=== PATIENT | male | born 1945 | race Caucasian/White ===

== ENCOUNTER 2022-07-27 13:34 | Outpatient (CLI) | payer MEDICARE, OTHER, SELFPAY ==
--- NOTE | 2022-07-27 15:00 | W.PM.STED ---
Stress Test Note Date Date Seen: 07/27/22 Date of test: 07/27/22 Providers Primary care provider: Manjeet Dunbar Stress test physician: [place] Stress Test Note Stress test ordered: Stress Echo Indication for test: Chest pain with left arm pain Results discussion: Patient is a very nice 77-year-old gentleman who presents here for the above test after review of the cardiac stress test medical history form, he would like to proceed risks benefits and adverse consequences are discussed with him. He accepts these and would like to proceed. Pretest EKG shows normal sinus rhythm with a heart rate of 87 blood pressure 120 on 75. Patient showed excellent exercise tolerance is able to follow the [place] protocol for 9 minutes 18 seconds and she had a metabolic equivalent of 10.7 Mets, maximum heart rate was 152, which is 123% of the target. He did not have any chest pain shortness of breath test is terminated because of fulfillment of protocol during this test there is no appreciable ST wave changes suggestive of ischemia, there was no dysrhythmias, any recovered normally in the recovery. Impression: Negative electrographic portion of stress echo Follow up suggested: Follow-up with primary care suggested, conditioning was felt to be excellent, Cardiology will read the echo portion and clinical correlation with this will be needed. Patient left this testing facility in excellent condition.
[2022-07-27 16:26] VITALS: BP 149/74; PULSE 85
== END 2022-07-27 13:35 | disposition home or self-care (01) ==
LOC: STRESS 13:35
PROVIDERS: PCP Family Medicine; Visit Provider Family Medicine
DX: R07.89 Other chest pain (principal); M79.602 Pain in left arm; I20.8 Other forms of angina pectoris
CPT/HCPCS: 93016; 93325; 93351

== ENCOUNTER 2023-07-19 10:20 | Outpatient (CLI) | payer MEDICARE, OTHER, SELFPAY | END 2023-07-19 10:21 | disposition home or self-care (01) | PROVIDERS: PCP Family Medicine; Visit Provider Family Medicine | DX: E03.9 Hypothyroidism, unspecified (principal); E78.5 Hyperlipidemia, unspecified; E13.9 Other specified diabetes mellitus without complications; Z79.84 Long term (current) use of oral hypoglycemic drugs | CPT/HCPCS: 80048; 80061; 80076; 84443 ==

== ENCOUNTER 2024-08-01 10:00 | Outpatient (CLI) | payer MEDICARE, SELFPAY | END 2024-08-01 10:01 | disposition home or self-care (01) | PROVIDERS: PCP Family Medicine; Visit Provider Family Medicine | DX: E11.9 Type 2 diabetes mellitus without complications (principal); E78.5 Hyperlipidemia, unspecified; E03.9 Hypothyroidism, unspecified; R53.83 Other fatigue; Z13.0 Encounter for screening for diseases of the blood and blood-forming organs and certain disorders involving the immune mechanism | CPT/HCPCS: 80048; 80061; 84443 ==

== ENCOUNTER 2024-09-14 10:10 | Emergency (ER) | payer MEDICARE, SELFPAY ==
[2024-09-14] VITALS (36 sets, daily range): BP systolic 108–146; BP diastolic 66–93; PULSE 75–89; RESP 16–20; TEMP 36.6; O2SAT 93–98; BMI 24.7
--- NOTE | 2024-09-14 10:51 | ED.GENADULT ---
HPI - General Adult General Chief complaint: Shortness of Breath/Dyspnea Stated complaint: Fluid in lungs Time Seen by Provider: 09/14/24 10:48 History of Present Illness HPI narrative: Pt sent by Dr. Dunbar, has been having symptoms of SOB for about 5 days. [place] like chest cold and cough. Also has some mild back pain which is unusual. 79-year-old man presenting to the emergency department after being seen in clinic with concern of pleural effusion and needing further characterization and possible intervention. History of diabetes type 2 using insulin. Also hypothyroid. Normal TSH in mid July. Has been short of breath increasingly so with exertion over the last few to 5 days. Is not having trouble sleeping, lying back. No cough or cold symptoms maybe trace cough today. No fever. Related Data Home Medications ?Medication ?Instructions ?Recorded ?Confirmed aspirin 81 mg tablet,delayed 81 mg PO QDAY 07/19/23 09/14/24 release nystatin 100,000 unit/gram topical 1 applic topical TID PRN 08/01/24 09/14/24 cream valacyclovir 1 gram tablet 1,000 mg PO BID PRN 08/01/24 09/14/24 insulin glargine 100 unit/mL (3 12 unit subcut QHS 09/14/24 mL) subcutaneous pen (Lantus Solostar U-100 Insulin) Previous Rx's ?Medication ?Instructions ?Recorded pen needle, diabetic 32 gauge x #100 ea 05/19/2302/17 (BD Ultra-Fine Micro Pen Needle) atorvastatin 10 mg tablet 10 mg PO QDAY #90 tabs 07/19/23 metformin 1,000 mg tablet 1,000 mg PO BID #180 tabs 07/19/23 semaglutide 0.25 mg or 0.5 mg (2 0.5 mg (0.736 mL) subcut QWEEK #3 06/05/24 mg/3 mL) subcutaneous pen injector mL (Ozempic) hydroxychloroquine 200 mg tablet 200 mg PO QDAY #90 tabs 07/10/24 blood-glucose,neurodiagnostic tech,cont #1 ea 07/30/24 (FreeStyle Nahomi 3 Hickman) blood-glucose sensor (FreeStyle #2 ea 08/07/24 Nahomi 3 Plus Sensor device) insulin aspart U-100 100 unit/mL 18 unit (0.18 mL) subcut TID #30 mL 08/07/24 (3 mL) subcutaneous pen (Novolog FlexPen U-100 Insulin aspart) hydrocodone 5 mg-acetaminophen 325 1 tab PO Q8H PRN pain #24 tabs 08/30/24 mg tablet levothyroxine 50 mcg tablet 50 mcg PO QDAY #90 tabs 08/30/24 tadalafil 20 mg tablet 20 mg PO QDAY PRN sexual activity 08/30/24 #32 tabs zolpidem 5 mg tablet 5 mg PO QHS PRN insomnia #20 tabs 08/30/24 Allergies Allergy/AdvReac Type Severity Reaction Status Date / Time No Known Drug Allergies Allergy Unverified 09/14/24 12:02 Review of Systems Status of ROS: Reports: 6 or more systems reviewed and unremarkable except as noted in History and below [facility] Medical History Hyperlipidemia ?E78.5 - Hyperlipidemia, unspecified (ICD-10) Hypothyroidism ?E03.9 - Hypothyroidism, unspecified (ICD-10) 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) ?M12.9 - Arthropathy, unspecified (ICD-10) Seasonal allergies ?J30.2 - Other seasonal allergic rhinitis (ICD-10) Hearing loss (05/23/12) ?H91.90 - Unspecified hearing loss, unspecified ear (ICD-10) Erectile dysfunction ?N52.9 - Male erectile dysfunction, unspecified (ICD-10) 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 - Herpesviral infection, unspecified (ICD-10) Colonic polyp (11/10/06) ?K63.5 - Polyp of colon (ICD-10) COVID-19 ?U07.1 - COVID-19 (ICD-10) Surgical History History of nasal septoplasty ?Z98.890 - Other specified postprocedural states (ICD-10) Family History Other Colon cancer Leukemia Social History Smoking Status: Never smoker How often do you have a drink containing alcohol: 4 or more times a week How many standard drinks containing alcohol do you have on a typical day: 1 or 2 How often do you have six or more drinks on one occasion: Never AUDIT-C Alcohol total score: 4 Non-prescribed substance use: denies use Exam Narrative: Exam Narrative: Very pleasant. Cranial nerves 2-12 intact. NAD. Skin is warm and dry. Well-perfused without peripheral edema. There is no JVD. Heart in regular rate rhythm or gallop. Lungs are clear though with markedly diminished to absent breath sounds in the right mid to lower lung ferraro. Abdomen is soft nontender. Const: Vital Signs, click to edit/add: Vital Signs - 24 hr 09/14/24 10:22 09/14/24 10:37 09/14/24 10:45 Temperature 97.8 F Pulse Rate 85 82 Pulse Rate [Pulse Oximeter] 89 Respiratory Rate 16 Blood Pressure Blood Pressure [Ri ght Upper Arm] 123/73 Pulse Oximetry 96 93 93 Oxygen Delivery Me thod Room Air 09/14/24 11:00 09/14/24 11:15 09/14/24 11:30 Temperature Pulse Rate 79 81 80 Pulse Rate [Pulse Oximeter] Respiratory Rate Blood Pressure Blood Pressure [Ri ght Upper Arm] Pulse Oximetry 97 95 95 Oxygen Delivery Me thod 09/14/24 11:45 09/14/24 11:59 09/14/24 12:30 Temperature Pulse Rate 80 82 Pulse Rate [Pulse Oximeter] Respiratory Rate Blood Pressure 138/73 Blood Pressure [Ri ght Upper Arm] Pulse Oximetry 95 95 Oxygen Delivery Me thod 09/14/24 13:05 09/14/24 13:19 09/14/24 13:20 Temperature Pulse Rate 82 79 75 Pulse Rate [Pulse Oximeter] Respiratory Rate 20 Blood Pressure 123/73 Blood Pressure [Ri ght Upper Arm] Pulse Oximetry 95 95 96 Oxygen Delivery Me thod 09/14/24 13:30 09/14/24 13:45 09/14/24 14:00 Temperature Pulse Rate 77 76 79 Pulse Rate [Pulse Oximeter] Respiratory Rate Blood Pressure Blood Pressure [Ri ght Upper Arm] Pulse Oximetry 95 96 95 Oxygen Delivery Me thod Documenting provider has reviewed patient's vital signs: yes Course Vital Signs Vital signs: Initial Vital Signs Temperature 97.8 F 09/14/24 10:22 Temperature Source Oral 09/14/24 10:22 Pulse Rate 89 09/14/24 10:22 Respiratory Rate 16 09/14/24 10:22 Blood Pressure 123/73 09/14/24 10:22 Blood Pressure Mean 89 09/14/24 10:22 Blood Pressure Position Sitting 09/14/24 10:22 Pulse Oximetry 96 09/14/24 10:22 Oxygen Delivery Method Room Air 09/14/24 10:22 Vital Signs Temperature 97.8 F 09/14/24 10:22 Pulse Rate 89 09/14/24 10:22 Respiratory Rate 16 09/14/24 10:22 Blood Pressure 123/73 09/14/24 10:22 Pulse Oximetry 96 09/14/24 10:22 Oxygen Delivery Method Room Air 09/14/24 10:22 Temperature 97.8 F 09/14/24 10:22 Pulse Rate 82 09/14/24 16:33 Respiratory Rate 16 09/14/24 16:06 Blood Pressure 142/71 H 09/14/24 16:32 Pulse Oximetry 98 09/14/24 16:33 Oxygen Delivery Method Room Air 09/14/24 16:06 Medical Decision Making MDM Narrative Medical decision making narrative: Make arrangements for CT imaging to further characterize this effusion. I am not sure that needs emergent/therapeutic tap but likely will need diagnostic tap. Labs are pending as well. A concern would be malignant effusion. I did independently review IV contrasted CT scan showing a large right-sided pleural effusion. Radiology over-read below INDICATION: Large right pleural effusion TECHNIQUE: CT chest with 75 cc Isovue 370 IV contrast. COMPARISON: Same day chest radiograph FINDINGS: Lungs and pleura: Large right pleural effusion. Near complete collapse of the right lower lobe. Solid lobulated right upper lobe nodule measuring 1.4 cm. Spiculated part solid left apical nodule measuring 0.5 cm (3/). Few left upper lobe calcified pleural plaques. Heart and vasculature: Heart size is normal. Thoracic aorta and pulmonary artery are normal in caliber.Severe coronary artery calcifications Lymph nodes/mediastinum: No mediastinal, hilar, or axillary adenopathy. Chest wall: No masses. Upper abdomen: Ill-defined hypoattenuation in the region of the pancreatic body (2/134), indeterminate for pancreatic lesion versus traversing duodenum. Bones: Bilateral glenohumeral joint degenerative change. IMPRESSION: 1. Large right pleural effusion with right lower lobe collapse. Solid right lower lobe nodule measuring 1.4 cm and spiculated subcentimeter left apical nodule. Findings are concerning for malignancy. Consider further evaluation with PET-CT. 2. Few left calcified pleural plaques can be seen in the setting of asbestos exposure. 3. Ill-defined hypoattenuation in the region of the pancreatic body, indeterminate for pancreatic lesion versus traversing duodenum. Attention on follow-up imaging if performed. Please note that all CT scans at this facility use dose modulation, iterative reconstruction, and/or weight-based dosing when appropriate to reduce radiation dose to as low as reasonably achievable. Dictated by Marybel Laguerre MD @ 09/14/2024 12:23:06 PM I did discuss with Mr. Vallejo concerns raised on CT imaging. Did contact General surgery to assist with pleural tap. On reassessment following tab Mr. Vallejo feels markedly improved he says. Vitals have remained stable during time in the emergency department See patient discharge plan for further discussion Expect a call from the clinic on Tuesday to schedule follow-up on Tuesday of this coming week. Probably 1045 or 11:[address] Vanessa. Would review available labs at that time and repeat tap. Be seen sooner for marked increase in shortness of breath, lightheadedness, fever. A pleasure to meet you. Let's keep moving forward on this. Medical Records Medical records reviewed: Yes I reviewed the patient's medical records Lab Data Lab results reviewed: Yes I reviewed the patient's lab results Labs: Lab Results 09/14/24 09/14/24 09/14/24 Range/Units 10:30 12:26 15:46 WBC 6.57 (4.50-11.00) K/uL RBC 5.32 (4.30-5.90) m/uL Hgb 15.9 (13.5-17.5) gm/dL Hct 48.0 (37.0-53.0) % MCV 90 (80-100) fL MCH 30 (26-34) pg MCHC 33 (32-36) gm/dL RDW Coeff of Fe 13.4 (11.5-15.5) % Plt Count 356 (140-440) K/uL Neut % (Auto) 70.1 (42.0-72.0) % Lymph % (Auto) 16.6 L (20-44) % [place] % (Auto) 11.1 H (0.0-11.0) % Eos % (Auto) 1.2 (0.0-7.0) % Baso % (Auto) 0.5 (0.0-3.0) % Neut # (Auto) 4.61 (1.7-7.0) K/uL Lymph # (Auto) 1.10 (0.90-2.90) K/uL [place] # (Auto) 0.70 (0.00-0.90) K/UL Eos # (Auto) 0.08 (0.00-0.50) K/uL Baso # (Auto) 0.03 (0.00-0.30) K/uL Abs Immat Gran (auto) 0.03 (0.00-0.30) K/uL Imm/Tot Granulo (auto) 0.5 % Sodium 136 (135-149) mmol/L Potassium 4.0 (3.6-5.1) mmol/L Chloride 103 (96-114) mmol/L Carbon Dioxide 26 (20-32) mmol/L Anion Gap 7 (7-15) mEq/L BUN 8 (7-30) mg/dL Creatinine 0.8 (0.5-1.5) mg/dL Estimated Creat Clear 63.88 Estimated GFR 91 ml/min Glucose 77 (60-115) mg/dL Lactate (0.5-1.9) mmol/L Calcium 9.4 (8.4-10.6) mg/dL Troponin I < 0.01 (0.01-0.04) ng/mL C-Reactive Protein 0.6 (0.5-1.0) mg/dL NT-Pro-B Natriuret Pep 122 (See Note) pg/mL Lipase 24 (23-300) U/L CEA (off-site) Cancelled Lab Acknowledgement Test Added 09/14/24 Range/Units 17:05 WBC (4.50-11.00) K/uL RBC (4.30-5.90) m/uL Hgb (13.5-17.5) gm/dL Hct (37.0-53.0) % MCV (80-100) fL MCH (26-34) pg MCHC (32-36) gm/dL RDW Coeff of Fe (11.5-15.5) % Plt Count (140-440) K/uL Neut % (Auto) (42.0-72.0) % Lymph % (Auto) (20-44) % [place] % (Auto) (0.0-11.0) % Eos % (Auto) (0.0-7.0) % Baso % (Auto) (0.0-3.0) % Neut # (Auto) (1.7-7.0) K/uL Lymph # (Auto) (0.90-2.90) K/uL [place] # (Auto) (0.00-0.90) K/UL Eos # (Auto) (0.00-0.50) K/uL Baso # (Auto) (0.00-0.30) K/uL Abs Immat Gran (auto) (0.00-0.30) K/uL Imm/Tot Granulo (auto) % Sodium (135-149) mmol/L Potassium (3.6-5.1) mmol/L Chloride (96-114) mmol/L Carbon Dioxide (20-32) mmol/L Anion Gap (7-15) mEq/L BUN (7-30) mg/dL Creatinine (0.5-1.5) mg/dL Estimated Creat Clear Estimated GFR ml/min Glucose (60-115) mg/dL Lactate 1.6 (0.5-1.9) mmol/L Calcium (8.4-10.6) mg/dL Troponin I (0.01-0.04) ng/mL C-Reactive Protein (0.5-1.0) mg/dL NT-Pro-B Natriuret Pep (See Note) pg/mL Lipase 26 (23-300) U/L CEA (off-site) Lab Acknowledgement Discharge Plan Discharge Clinical Impression: Pleural effusion, Pulmonary nodule Patient Disposition: Home w/ Parent or Adult Condition: Improved Additional Instructions: Expect a call from the clinic on Tuesday to schedule follow-up on Tuesday of this coming week. Probably 1045 or 11:[address] Vanessa. Would review available labs at that time and repeat tap. Be seen sooner for marked increase in shortness of breath, lightheadedness, fever. A pleasure to meet you. Let's keep moving forward on this. Prescriptions: No Action aspirin 81 mg tablet,delayed release (DR/EC) 81 mg PO QDAY atorvastatin 10 mg tablet 10 mg PO QDAY Qty: 90 3RF metformin 1,000 mg tablet 1,000 mg PO BID Qty: 180 3RF nystatin 100,000 unit/gram cream 1 applic topical TID PRN valacyclovir 1 gram tablet 1,000 mg PO BID PRN insulin glargine [Lantus Solostar U-100 Insulin] 100 unit/mL (3 mL) insulin pen 12 unit subcut QHS (DME) pen needle, diabetic [BD Ultra-Fine Micro Pen Needle] 32 gauge x 1/4 needle See Rx Instructions .Route Qty: 100 11RF Rx Instructions: BID testing Ozempic 0.25 mg or 0.5 mg (2 mg/3 mL) pen injector 0.5 mg subcut QWEEK Qty: 3 5RF hydroxychloroquine 200 mg tablet 200 mg PO QDAY Qty: 90 3RF (DME) FreeStyle Nahomi 3 Hickman Misc See Rx Instructions .Route Qty: 1 0RF Rx Instructions: As directed insulin aspart U-100 [Novolog FlexPen U-100 Insulin] 100 unit/mL (3 mL) insulin pen 18 unit subcut TID Qty: 30 2RF Rx Instructions: THREE TIMES DAILY WITH MEALS. (DME) FreeStyle Nahomi 3 Plus Sensor Device See Rx Instructions .Route Qty: 2 11RF Rx Instructions: Change sensor every 15 days levothyroxine 50 mcg tablet 50 mcg PO QDAY Qty: 90 3RF tadalafil 20 mg tablet 20 mg PO QDAY PRN (Reason: sexual activity) Qty: 32 11RF Rx Instructions: administer approximately 30min before sexual activity; do not use more than 1 dose per 24hrs hydrocodone-acetaminophen 5-325 mg tablet 1 tab PO Q8H PRN (Reason: pain) Qty: 24 0RF zolpidem 5 mg tablet 5 mg PO QHS PRN (Reason: insomnia) Qty: 20 2RF Follow Up/Referrals: Manjeet Dunbar MD [Primary Care Provider, Family Practice] Stand Alone Forms: [facility] Inst[facility]
--- NOTE | 2024-09-14 11:01 | CRLHL7_ITS ---
For Patients: As a result of the Century Cures Act, medical imaging exams and procedure reports are released immediately into your electronic medical record. You may view this report before your referring provider. If you have questions, please contact your health care provider. INDICATION: Large right pleural effusion TECHNIQUE: CT chest with 75 cc Isovue 370 IV contrast. COMPARISON: Same day chest radiograph FINDINGS: Lungs and pleura: Large right pleural effusion. Near complete collapse of the right lower lobe. Solid lobulated right upper lobe nodule measuring 1.4 cm. Spiculated part solid left apical nodule measuring 0.5 cm (3/23). Few left upper lobe calcified pleural plaques. Heart and vasculature: Heart size is normal. Thoracic aorta and pulmonary artery are normal in caliber.Severe coronary artery calcifications Lymph nodes/mediastinum: No mediastinal, hilar, or axillary adenopathy. Chest wall: No masses. Upper abdomen: Ill-defined hypoattenuation in the region of the pancreatic body (2/134), indeterminate for pancreatic lesion versus traversing duodenum. Bones: Bilateral glenohumeral joint degenerative change. IMPRESSION: 1. Large right pleural effusion with right lower lobe collapse. Solid right lower lobe nodule measuring 1.4 cm and spiculated subcentimeter left apical nodule. Findings are concerning for malignancy. Consider further evaluation with PET-CT. 2. Few left calcified pleural plaques can be seen in the setting of asbestos exposure. 3. Ill-defined hypoattenuation in the region of the pancreatic body, indeterminate for pancreatic lesion versus traversing duodenum. Attention on follow-up imaging if performed. Please note that all CT scans at this facility use dose modulation, iterative reconstruction, and/or weight-based dosing when appropriate to reduce radiation dose to as low as reasonably achievable. Dictated by Marybel Laguerre MD @ 09/14/2024 12:23:06 PM (Electronically Signed)
[2024-09-14 11:12] LABS: Hematocrit 48.0 % (37.0-53.0); Hemoglobin* 15.9 gm/dL (13.5-17.5); Immature Granulocytes Abs Auto 0.03 K/uL (0.00-0.30); Immature Granulocytes Pct Auto 0.5 %; Mean Corpuscular HGB Conc 33 gm/dL (32-36); Mean Corpuscular Hemoglobin 30 pg (26-34); Mean Corpuscular Volume 90 fL (80-100); RDW Coefficient of Variation % 13.4 % (11.5-15.5); Red Blood Count 5.32 m/uL (4.30-5.90); White Blood Count* 6.57 K/uL (4.50-11.00)
[2024-09-14 11:26] LABS: Chloride* 103 mmol/L (96-114); Potassium* 4.0 mmol/L (3.6-5.1); Sodium* 136 mmol/L (135-149)
[2024-09-14 11:30] LABS: Anion Gap 7 mEq/L (7-15); Blood Urea Nitrogen* 8 mg/dL (7-30); Calcium* 9.4 mg/dL (8.4-10.6); Carbon Dioxide* 26 mmol/L (20-32); Creatinine* 0.8 mg/dL (0.5-1.5); Est. Creatinine Clearance* 63.88; Estimated Glomerular Filt Rate 91 ml/min; Glucose* 77 mg/dL (60-115)
[2024-09-14 11:42] LABS: NT Pro B Type NatriureticPept* 122 pg/mL (See Note)
[2024-09-14 11:45] LABS: Lymphocytes Absolute Auto 1.10 K/uL (0.90-2.90)
[2024-09-14 11:46] LABS: Slide Review Reflex No
--- NOTE | 2024-09-14 16:07 | CRLHL7_ITS ---
For Patients: As a result of the Cures Act, medical imaging exams and procedure reports are released immediately into your electronic medical record. You may view this report before your referring provider. If you have questions, please contact your health care provider. INDICATION: : POST THORACENTESIS COMPARISON: Same day CT chest and chest radiograph TECHNIQUE: Two view(s) of the chest FINDINGS/IMPRESSION: Mild reduction in size of the persistent moderate volume right-sided pleural effusion. No pneumothorax. Left lung is clear. The cardiomediastinal silhouette is unremarkable. Dictated by Vincent Villanueva MD @ 09/14/2024 5:04:57 PM (Electronically Signed)
--- NOTE | 2024-09-14 16:11 | PM.GSCN ---
History of Present Illness Consult details Date Seen: 09/14/24 Consult date: 09/14/24 Narrative: The patient is a 79-year-old male who presented to the emergency department from primary care clinic with shortness of breath for the last week. He states that a week ago he road bike with his for 1 hour without difficulty and was in perfect health however since then he has had progressive worsening respiratory symptoms. He states that he has had a slight cough and a small amount of pain which radiates to his back, however mainly he is significantly short of breath. Today he tried to ride bike and was not able to go 100 yd. He thought that maybe he had a chest cold, however he went to see his primary care doctor, Dr. Juarez and had a chest x-ray which showed a large right pleural effusion. He is not a smoker. He does drink alcohol moderately. He has never had any lung issues in the past. No chest surgery. No family history of lung cancer. He does have a family history of lymphoma in his dad and his brother. He does not take any blood thinners. 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 infection, unspecified (ICD-10) Colonic polyp (11/10/06) ?K63.5 - Polyp of colon (ICD-10) COVID-19 ?U07.1 - COVID-19 (ICD-10) Surgical History History of nasal septoplasty ?Z98.890 - Other specified postprocedural states (ICD-10) Family History Other Colon cancer Leukemia Social History Smoking Status: Never smoker How often do you have a drink containing alcohol: 4 or more times a week How many standard drinks containing alcohol do you have on a typical day: 1 or 2 How often do you have six or more drinks on one occasion: Never AUDIT-C Alcohol total score: 4 Non-prescribed substance use: denies use Meds Home Medications and Allergies Home Medications ?Medication ?Instructions ?Recorded ?Confirmed ?Type pen needle, diabetic 32 gauge x #100 ea 05/19/23 08/01/24 Rx 1/4 (BD Ultra-Fine Micro Pen Needle) aspirin 81 mg tablet,delayed 81 mg PO QDAY 07/19/23 09/14/24 History release atorvastatin 10 mg tablet 10 mg PO QDAY #90 tabs 07/19/23 09/14/24 Rx metformin 1,000 mg tablet 1,000 mg PO BID #180 tabs 07/19/23 09/14/24 Rx semaglutide 0.25 mg or 0.5 mg (2 0.5 mg (0.736 mL) subcut QWEEK #3 06/05/24 09/14/24 Rx mg/3 mL) subcutaneous pen injector mL (Ozempic) hydroxychloroquine 200 mg tablet 200 mg PO QDAY #90 tabs 07/10/24 09/14/24 Rx blood-glucose,journeyman machinist,cont #1 ea 07/30/24 08/01/24 Rx (FreeStyle Nahomi 3 [place]) nystatin 100,000 unit/gram topical 1 applic topical TID PRN 08/01/24 09/14/24 History cream valacyclovir 1 gram tablet 1,000 mg PO BID PRN 08/01/24 09/14/24 History blood-glucose sensor (FreeStyle #2 ea 08/07/24 Rx Nahomi 3 Plus Sensor device) insulin aspart U-100 100 unit/mL 18 unit (0.18 mL) subcut TID #30 mL 08/07/24 09/14/24 Rx (3 mL) subcutaneous pen (Novolog FlexPen U-100 Insulin aspart) hydrocodone 5 mg-acetaminophen 325 1 tab PO Q8H PRN pain #24 tabs 08/30/24 09/14/24 Rx mg tablet levothyroxine 50 mcg tablet 50 mcg PO QDAY #90 tabs 08/30/24 09/14/24 Rx tadalafil 20 mg tablet 20 mg PO QDAY PRN sexual activity 08/30/24 09/14/24 Rx #32 tabs zolpidem 5 mg tablet 5 mg PO QHS PRN insomnia #20 tabs 08/30/24 09/14/24 Rx insulin glargine 100 unit/mL (3 12 unit subcut QHS 09/14/24 History mL) subcutaneous pen (Lantus Solostar U-100 Insulin) Allergies Allergy/AdvReac Type Severity Reaction Status Date / Time No Known Drug Allergies Allergy Unverified 09/14/24 12:02 Exam Narrative: Exam Narrative: General appearance: Alert, cooperative, and in no distress Eyes: PERRLA, eye lids clear, and sclera white HENT Head: Normocephalic Ears: External ears normal Pulmonary: Breathing nonlabored on room air. Breath sounds are markedly diminished on the right base and right mid lung. Clear on the left. Cardiovascular Heart: Regular rate Extremities: warm and well perfused Musculoskeletal: Extremities: Upper: Both upper extremities have normal joint range of motion and intact strength. Lower: Both lower extremities have normal joint range of motion and intact strength. Skin: Normal skin color, texture, and turgor. Neurologic: No focal deficits Psychiatric: Alert, oriented, cooperative, normal affect. Const: Vital Signs, click to edit/add: Vital Signs - 24 hr 09/14/24 10:22 09/14/24 10:37 09/14/24 10:45 Temperature 97.8 F Pulse Rate 85 82 Pulse Rate [Pulse Oximeter] 89 Respiratory Rate 16 Blood Pressure Blood Pressure [Ri ght Upper Arm] 123/73 Pulse Oximetry 96 93 93 Oxygen Delivery Me thod Room Air 09/14/24 11:00 09/14/24 11:15 09/14/24 11:30 Temperature Pulse Rate 79 81 80 Pulse Rate [Pulse Oximeter] Respiratory Rate Blood Pressure Blood Pressure [Ri ght Upper Arm] Pulse Oximetry 97 95 95 Oxygen Delivery Me thod 09/14/24 11:45 09/14/24 11:59 09/14/24 12:30 Temperature Pulse Rate 80 82 Pulse Rate [Pulse Oximeter] Respiratory Rate Blood Pressure 138/73 Blood Pressure [Ri ght Upper Arm] Pulse Oximetry 95 95 Oxygen Delivery Me thod 09/14/24 13:05 09/14/24 13:19 09/14/24 13:20 Temperature Pulse Rate 82 79 75 Pulse Rate [Pulse Oximeter] Respiratory Rate 20 Blood Pressure 123/73 Blood Pressure [Ri ght Upper Arm] Pulse Oximetry 95 95 96 Oxygen Delivery Me thod 09/14/24 13:30 09/14/24 13:45 09/14/24 14:00 Temperature Pulse Rate 77 76 79 Pulse Rate [Pulse Oximeter] Respiratory Rate Blood Pressure Blood Pressure [Ri ght Upper Arm] Pulse Oximetry 95 96 95 Oxygen Delivery Me thod 09/14/24 14:30 09/14/24 15:14 09/14/24 15:35 Temperature Pulse Rate 77 75 85 Pulse Rate [Pulse Oximeter] Respiratory Rate 20 Blood Pressure 130/93 H Blood Pressure [Ri ght Upper Arm] Pulse Oximetry 95 95 95 Oxygen Delivery Me thod 09/14/24 15:37 09/14/24 15:42 09/14/24 15:45 Temperature Pulse Rate 78 82 83 Pulse Rate [Pulse Oximeter] Respiratory Rate Blood Pressure 135/90 H 130/80 Blood Pressure [Ri ght Upper Arm] Pulse Oximetry 97 97 95 Oxygen Delivery Me thod 09/14/24 15:47 09/14/24 15:52 09/14/24 15:57 Temperature Pulse Rate 86 78 82 Pulse Rate [Pulse Oximeter] Respiratory Rate Blood Pressure 116/85 115/71 108/66 Blood Pressure [Ri ght Upper Arm] Pulse Oximetry 95 96 97 Oxygen Delivery Me thod 09/14/24 16:00 09/14/24 16:01 Temperature Pulse Rate 77 79 Pulse Rate [Pulse Oximeter] Respiratory Rate Blood Pressure 123/86 Blood Pressure [Ri ght Upper Arm] Pulse Oximetry 96 96 Oxygen Delivery Me thod Results Labs Labs: Abnormal lab results 09/14/24 Range/Units 10:30 Lymph % (Auto) 16.6 L (20-44) % Faulk % (Auto) 11.1 H (0.0-11.0) % Diabetes panel 09/14/24 Range/Units 10:30 Sodium 136 (135-149) mmol/L Potassium 4.0 (3.6-5.1) mmol/L Chloride 103 (96-114) mmol/L Carbon Dioxide 26 (20-32) mmol/L BUN 8 (7-30) mg/dL Creatinine 0.8 (0.5-1.5) mg/dL Glucose 77 (60-115) mg/dL Calcium 9.4 (8.4-10.6) mg/dL Calcium panel 09/14/24 Range/Units 10:30 Calcium 9.4 (8.4-10.6) mg/dL Pituitary panel 09/14/24 Range/Units 10:30 Sodium 136 (135-149) mmol/L Potassium 4.0 (3.6-5.1) mmol/L Chloride 103 (96-114) mmol/L Carbon Dioxide 26 (20-32) mmol/L BUN 8 (7-30) mg/dL Creatinine 0.8 (0.5-1.5) mg/dL Glucose 77 (60-115) mg/dL Calcium 9.4 (8.4-10.6) mg/dL Adrenal panel 09/14/24 Range/Units 10:30 Sodium 136 (135-149) mmol/L Potassium 4.0 (3.6-5.1) mmol/L Chloride 103 (96-114) mmol/L Carbon Dioxide 26 (20-32) mmol/L BUN 8 (7-30) mg/dL Creatinine 0.8 (0.5-1.5) mg/dL Glucose 77 (60-115) mg/dL Calcium 9.4 (8.4-10.6) mg/dL All other labs normal. Imaging Additional studies: CT scan of the chest done today: IMPRESSION: 1. Large right pleural effusion with right lower lobe collapse. Solid right lower lobe nodule measuring 1.4 cm and spiculated subcentimeter left apical nodule. Findings are concerning for malignancy. Consider further evaluation with PET-CT. 2. Few left calcified pleural plaques can be seen in the setting of asbestos exposure. 3. Ill-defined hypoattenuation in the region of the pancreatic body, indeterminate for pancreatic lesion versus traversing duodenum. Attention on follow-up imaging if performed. Dictated by Marybel Laguerre MD @ 09/14/2024 12:23:06 PM Progress Note:A&P Assessment and plan (1) Dyspnea on exertion: Status: Acute (2) Insulin dependent diabetes mellitus: Status: Acute (3) Type 2 diabetes mellitus: Status: Acute (4) Pleural effusion: Status: Acute Plan The patient is a 79-year-old male with a right-sided pleural effusion. I was requested to perform diagnostic and therapeutic thoracentesis. I discussed with the patient the risks and benefits of the procedure including but not limited to bleeding, pneumothorax or injury to other structures, infection and need for additional procedures. I discussed with him that the differential is broad, however I am concerned about malignancy. A small lung nodule was noted and therefore a PET scan is recommended. He also had a questionable lesion in his pancreas. This will also need further workup with likely an MRI. I will plan to remove as much fluid as I safely can today, however I did explain to the patient that I will not be able to remove all of the fluid and he may benefit from scheduled thoracentesis next week. I will discuss with his primary care provider Dr. Juarez about ordering these studies and someone will reach out to him to schedule. We will call him with his results.
--- NOTE | 2024-09-14 16:16 | PM.PROC ---
Procedure Note Date Seen: 09/14/24 Will [facility] bill your pro fee for this procedure?: Yes Pre-op diagnosis: Right-sided pleural effusion Post-op diagnosis: same Procedure: Right thoracentesis with ultrasound guidance Procedure Description: After discussion of the risks and benefits the patient was placed in a seated position leaning over a table. Ultrasound guidance was used to identify the effusion. Once this was done the site was marked. The area was prepped and draped in the usual sterile fashion. Local anesthetic was used to anesthetize the skin and subcutaneous tissue down to the rib. Once the rib was encountered, the needle was advanced over the top of the rib into the pleural space. This was confirmed by the aspiration of straw-colored fluid. A skin aroldo was made with an 11 blade. The thoracentesis catheter was advanced into the pleural cavity while aspirating. Once the pleural fluid was aspirated confirming entrance into the chest cavity, the needle was removed and the sheath advanced. 1600ml of fluid were then aspirated until no further fluid returned. This was confirmed via ultrasound showing the lung up to the chest wall at the level of the needle. There was additional fluid present in the lower right chest still as expected. Specimens were sent for chemistry, microbiology and cytology. The catheter was then removed, and an occlusive dressing was placed over the skin site. Patient tolerated the procedure well. Estimated blood loss 1 mL Postprocedure chest x-ray revealed no pneumothorax. Anesthesia: local
[2024-09-14 17:19] LABS: Lactate* 1.6 mmol/L (0.5-1.9)
[2024-09-14 17:42] LABS: Lab Miscellaneous Test T
== END 2024-09-14 17:26 | disposition home or self-care (01) ==
PROVIDERS: Surgery; Emergency Provider Family Medicine; PCP Family Medicine
DX: J90 Pleural effusion, not elsewhere classified (principal); R91.1 Solitary pulmonary nodule
CPT/HCPCS: 32555; 36415; 71046; 71260; 80048; 82040; 82042; 82150; 82247; 82378; 82465; 82945; 83605; 83615; 83690; 83880; 84155; 84157; 84311; 84484; 85025; 85610; 86140; 87070; 87075; 87102; 87116; 87205; 88112; 89051; 99284; 99285; Q9967

== ENCOUNTER 2024-09-18 12:34 | Inpatient (IN) | payer MEDICARE, SELFPAY ==
[2024-09-18] VITALS (15 sets, daily range): BP systolic 92–137; BP diastolic 58–82; PULSE 64–95; RESP 16–18; TEMP 35.9–36.9; O2SAT 94–100; BMI 24.0
--- NOTE | 2024-09-18 11:05 | CRLHL7_ITS ---
For Patients: As a result of the Century Cures Act, medical imaging exams and procedure reports are released immediately into your electronic medical record. You may view this report before your referring provider. If you have questions, please contact your health care provider. INDICATION: Post thoracentesis. TECHNIQUE: Chest 1 portable view. COMPARISON: 09/14/2024. FINDINGS: Moderate right pneumothorax. Right pleural effusion component is similar or slightly increased. Similar elevation of the right hemidiaphragm. Right basilar opacity has increased. Left lung is grossly clear. Stable cardiac and mediastinal contours. Upper abdomen and osseous structures as imaged show no acute abnormality. IMPRESSION: Moderate right pneumothorax. Discussed with Dr. Vanessa by telephone at approximately 11:45 a.m. on 09/18/2024. Dictated by Jason Wooten MD @ 09/18/2024 12:03:36 PM (Electronically Signed)
--- NOTE | 2024-09-18 12:01 | PM.PROC ---
Procedure Note Date Seen: 09/18/24 Date of procedure: 09/18/24 Will [facility] bill your pro fee for this procedure?: Yes Pre-op diagnosis: Right pleural effusion Post-op diagnosis: same Procedure: 1. Right thoracentesis, ultrasound-guided 2. Right pigtail chest tube placement Procedure Description: After discussion of the risks and benefits the patient was placed in a seated position leaning over a table. Ultrasound guidance was used to identify the effusion. Once this was done the site was marked. The area was prepped and draped in the usual sterile fashion. Local anesthetic was used to anesthetize the skin and subcutaneous tissue down to the rib. Once the rib was encountered, the needle was advanced over the top of the rib into the pleural space. Aspiration of a small amount of straw-colored fluid. A skin aroldo was made with an 11 blade. The thoracentesis catheter was advanced into the pleural cavity while aspirating. At this junction the procedure there was no aspiration of fluid but instead air. Concern for possible underlying injury to the lung so the procedure was aborted with no removal of fluid. A dressing of Steri-Strips was placed over top. Chest x-ray was obtained which showed a moderate-sized pneumothorax and persistent pleural effusion. Recommendations for pigtail catheter placement. Risks and benefits were again discussed with the patient and consent obtained. The patient's lateral right chest was prepped and draped in the usual sterile fashion. An area located just laterally to the nipple line mid axillary was marked for an incision. Local anesthetic was injected into the skin and deep soft tissue overlying the area of the right chest. A 11 Blade was used to make a small incision. The 8 Yi pigtail catheter was advanced into the pleural cavity while aspirating. Aspiration of air with the catheter advanced into the chest wall. A harris of air was appreciated. The chest tube was then connected with the suction canister and sutured into place. A sterile dressing was applied. Patient tolerated the procedure well. Estimated blood loss 1 mL Anesthesia: local Estimated blood loss (mL): 1 Pathology: none sent Condition: stable Disposition: floor
--- NOTE | 2024-09-18 12:04 | CRLHL7_ITS ---
For Patients: As a result of the Century Cures Act, medical imaging exams and procedure reports are released immediately into your electronic medical record. You may view this report before your referring provider. If you have questions, please contact your health care provider. Indication: pneumo Technique: AP view of the chest. Comparison: 09/18/2024. Findings: Normal cardiomediastinal silhouette. Moderate right basilar opacity with likely small to moderate pleural effusion. Slight interval decrease in size of small right pneumothorax with 1.9 centimeter of apical pleural separation, previously measuring 3.3 centimeter. Interval placement of right chest tube, which appears to be near the right lateral chest wall. Impression: 1. Moderate right basilar opacity with likely small to moderate pleural effusion. 2. Slight interval decrease in size of small right pneumothorax with 1.9 centimeter of apical pleural separation, previously measuring 3.3 centimeter. Interval placement of right chest tube, which appears to be near the right lateral chest wall. Consider correlation with evidence of chest tube dysfunction. Dictated by Baljit Thompson MD @ 09/18/2024 12:58:36 PM (Electronically Signed)
--- NOTE | 2024-09-18 12:09 | PM.GSHP ---
History of Present Illness History of Present Illness Date Seen: 09/18/24 Chief complaint: pleural effusion Narrative: Ben Vallejo is a 79 year old male who presented as an outpatient for right-sided thoracentesis. He has a large pleural effusion on that side. He initially presented to the emergency department on Thursday 09/14 where 1600 mL straw-colored fluid was removed. There was also an underlying pulmonary mass concerning for malignancy that seen on CT imaging. A significant amount of fluid remained after his thoracentesis on Tuesday so the hope was to remove more fluid today. During the procedure a complication of a pneumothorax developed. Patient denied any increased shortness of breath or chest pain during the procedure. Everything was tolerated well. Overall he feels like he has been doing better since the fluid was removed on Tuesday. He has been holding his baby aspirin for the last 2 days. He has a history of diabetes, controlled with insulin. Review of Systems Status of ROS: Reports: 10 or more systems reviewed and unremarkable except as noted in History and below [facility] Medical History Hyperlipidemia ?E78.5 - Hyperlipidemia, unspecified (ICD-10) Hypothyroidism ?E03.9 - Hypothyroidism, unspecified (ICD-10) 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) ?M12.9 - Arthropathy, unspecified (ICD-10) Seasonal allergies ?J30.2 - Other seasonal allergic rhinitis (ICD-10) Hearing loss (05/23/12) ?H91.90 - Unspecified hearing loss, unspecified ear (ICD-10) Erectile dysfunction ?N52.9 - Male erectile dysfunction, unspecified (ICD-10) 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 - Herpesviral infection, unspecified (ICD-10) Colonic polyp (11/10/06) ?K63.5 - Polyp of colon (ICD-10) COVID-19 ?U07.1 - COVID-19 (ICD-10) Surgical History History of nasal septoplasty ?Z98.890 - Other specified postprocedural states (ICD-10) Family History Other Colon cancer Leukemia Social History Smoking Status: Never smoker How often do you have a drink containing alcohol: 4 or more times a week How many standard drinks containing alcohol do you have on a typical day: 1 or 2 How often do you have six or more drinks on one occasion: Never AUDIT-C Alcohol total score: 4 Non-prescribed substance use: denies use Meds Home Medications and Allergies Home Medications ?Medication ?Instructions ?Recorded ?Confirmed ?Type pen needle, diabetic 32 gauge x #100 ea 05/19/23 08/01/24 Rx 1/4 (BD Ultra-Fine Micro Pen Needle) aspirin 81 mg tablet,delayed 81 mg PO QDAY 07/19/23 09/14/24 History release atorvastatin 10 mg tablet 10 mg PO QDAY #90 tabs 07/19/23 09/14/24 Rx metformin 1,000 mg tablet 1,000 mg PO BID #180 tabs 07/19/23 09/14/24 Rx semaglutide 0.25 mg or 0.5 mg (2 0.5 mg (0.736 mL) subcut QWEEK #3 06/05/24 09/14/24 Rx mg/3 mL) subcutaneous pen injector mL (Ozempic) hydroxychloroquine 200 mg tablet 200 mg PO QDAY #90 tabs 07/10/24 09/14/24 Rx blood-glucose,aviation operations specialist,cont #1 ea 07/30/24 08/01/24 Rx (FreeStyle Nahomi 3 [place]) nystatin 100,000 unit/gram topical 1 applic topical TID PRN 08/01/24 09/14/24 History cream valacyclovir 1 gram tablet 1,000 mg PO BID PRN 08/01/24 09/14/24 History blood-glucose sensor (FreeStyle #2 ea 08/07/24 Rx Nahomi 3 Plus Sensor device) insulin aspart U-100 100 unit/mL 18 unit (0.18 mL) subcut TID #30 mL 08/07/24 09/14/24 Rx (3 mL) subcutaneous pen (Novolog FlexPen U-100 Insulin aspart) hydrocodone 5 mg-acetaminophen 325 1 tab PO Q8H PRN pain #24 tabs 08/30/24 09/14/24 Rx mg tablet levothyroxine 50 mcg tablet 50 mcg PO QDAY #90 tabs 08/30/24 09/14/24 Rx tadalafil 20 mg tablet 20 mg PO QDAY PRN sexual activity 08/30/24 09/14/24 Rx #32 tabs zolpidem 5 mg tablet 5 mg PO QHS PRN insomnia #20 tabs 08/30/24 09/14/24 Rx insulin glargine 100 unit/mL (3 12 unit subcut QHS 09/14/24 History mL) subcutaneous pen (Lantus Solostar U-100 Insulin) Allergies Allergy/AdvReac Type Severity Reaction Status Date / Time No Known Drug Allergies Allergy Unverified 09/14/24 12:02 Exam Narrative: Exam Narrative: General: Alert and oriented, no acute distress Respiratory: Maintained on room air, decreased breath sounds on the right, clear breath sounds left CV: Regular rhythm and rate Abdomen: Soft, nontender nondistended Const: Vital Signs, click to edit/add: Vital Signs - 24 hr 09/18/24 10:45 09/18/24 11:13 09/18/24 11:25 Temperature 97.4 F L Pulse Rate [Pulse Oximeter] 80 95 79 Respiratory Rate 16 16 16 Blood Pressure [Ri ght Arm] 137/77 135/77 129/82 Pulse Oximetry 100 94 94 Oxygen Delivery Me thod Room Air Room Air Room Air 09/18/24 11:30 09/18/24 11:35 09/18/24 11:36 Temperature Pulse Rate [Pulse Oximeter] 80 76 64 Respiratory Rate 16 16 16 Blood Pressure [Ri ght Arm] 121/74 117/73 118/81 Pulse Oximetry 94 94 95 Oxygen Delivery Me thod Room Air Room Air 09/18/24 12:00 Temperature Pulse Rate [Pulse Oximeter] 69 Respiratory Rate Blood Pressure [Ri ght Arm] 92/58 L Pulse Oximetry 94 Oxygen Delivery Me thod Room Air Results Results Labs: No new labs Chest x-ray: report reviewed and image reviewed Progress Note:A&P Assessment and plan (1) Pneumothorax, right: Status: Acute Assessment and Plan: Patient presented for a right thoracentesis. This was complicated by a right pneumothorax, with an 8 [place] pigtail catheter placed. Patient tolerated procedure well. Will continue with the chest tube to suction and plan to repeat chest x-ray tomorrow morning. If the lung does not fully expand would plan to upgrade the pigtail catheter to a larger sized chest tube. Plan - Chest x-ray in the morning -okay for diabetic diet -blood sugar checks and insulin as needed ordered -p.o. pain meds as needed -okay to clamp the canister during ambulation
[2024-09-18] MEDS: IBUPROFEN 600 MG TABLET PO ×2 (13:00→23:01)
[2024-09-18] MEDS: HYDROCODONE-ACETAMIN 5-325 MG 1 TAB PO ×3 (14:07→21:18)
--- NOTE | 2024-09-18 14:43 | PC.NURSE ---
Patient reported his glucose being low with his home monitor. Patient had just finished eating (first meal of the day) and monitor said glucose was 45. Patient drinking apple juice at the time too. Patient reports not feeling any hypoglycemia symptoms. Patient refused nurse doing a finger stick to check with our glucometer and said to check back in 30 minutes after apple juice. Nurse advised a second check and the importance of patient reporting any symptoms to nurse immediately. Patient still refused another finger stick and other interventions at this time.
--- NOTE | 2024-09-18 14:47 | PC.SOCIAL ---
Social Service Initial Assessment: 1.??? Assessment completed with: Patient and Spouse 2.??? Pt lives at address and phone number on face sheet? Yes 3.?Insurance information? on face sheet is correct? Yes 4.?Contacts? on face sheet are correct? Yes 5.??? Does pt have a Healthcare Directive, POLST or Guardian? Yes, HCD, but not on file. will bring this to PCP. 6.??? Who is the pt?s main source/sources of emotional/physical support? 7.??? Prior to admission did pt need assistance? NO 8.??? Who provided and what was the assistance needed? N/A 9. Was Home Health being provided, by what agency? No 10. Does pt use/have medical equipment at home already? What? No 11. Will there be a need for additional assistance at discharge and is this available in previous setting? Not at this time 12. If pt needs to go to a higher level of care, are they open to this and do they have facilities they are interested in? Not needed at this time 13. How would pt plan to transport at discharge? Family 14. Is there anyone pt would like social service coordinator to contact to discuss discharge plans? No
[2024-09-18] MEDS: INSULIN ASPART 100 UNIT/ML 14 UNIT SUBCUT (17:23)
--- NOTE | 2024-09-18 19:42 | PC.NURSE ---
Pt voiced concern regarding elevated BG levels, 200 or greater. Plastic Surgery Specialist reached out to doctor Otf who okayed pt's request for a one time dose of 14 units of Novolog prior to evening meal. Dr. Tapia consulted to assist managing BG monitoring and insulin regiment. Chest tube collection chamber changed at 1500. Output at 1900= 750 ml.
[2024-09-18] MEDS: ATORVASTATIN CALCIUM 10 MG TABLET PO (21:05)
[2024-09-18] MEDS: MELATONIN 3 MG TABLET PO (21:18)
[2024-09-19] MEDS: HYDROCODONE-ACETAMIN 5-325 MG 1 TAB PO ×3 (01:41→11:27)
[2024-09-19] MEDS: ZOLPIDEM 5 MG TABLET PO (01:47)
[2024-09-19 03:00] VITALS: BP 110/63; PULSE 62; RESP 14; TEMP 36.3; O2SAT 95
--- NOTE | 2024-09-19 06:00 | CRLHL7_ITS ---
For Patients: As a result of the Century Cures Act, medical imaging exams and procedure reports are released immediately into your electronic medical record. You may view this report before your referring provider. If you have questions, please contact your health care provider. INDICATION: Follow-up pneumothorax COMPARISON: September 18, 2024 TECHNIQUE: A single view study was obtained as a portable CXR, September 19, 2024 FINDINGS: As discussed below IMPRESSION: 1. Small bore pleural drain and medially in the mid right hemithorax. 2. Right side: Improved pleural effusion. Improved airspace opacity at the right base. No pneumothorax. 3. The left side appears normal Dictated by Pierre Bonilla MD @ 09/19/2024 6:49:33 AM (Electronically Signed)
[2024-09-19] MEDS: LEVOTHYROXINE 50 MCG TABLET PO (06:10)
--- NOTE | 2024-09-19 06:53 | PC.NURSE ---
End of shift report [id number]: VSS. Afebrile. Rates pain a 4/10 prn pain meds offered and given with relief. Right chest tube is patent and intact. Total chest tube output this shift was 50 mls. Pt expressed concern regarding elevated blood glucose levels, 14 units of insulin was given by previous nurse, leader writer let the patient know that there is insulin ordered for 2100 if needed and we will continue to monitor, pt agreed. No insulin given at HS med pass due to BG of 132 and pt didn?t eat anything for dinner expressing he was not hungry. The leader writer educated pt that an IV would be beneficial in case he needed IV medications, pt expressed that he is able to feel when he is hypoglycemic and will alert me, stating ?his glucose monitoring alcira will also alert him?. Pt is SBA to BR. Call light within reach.?
[2024-09-19 07:00] VITALS: BP 114/75; PULSE 69; RESP 18; TEMP 36.4; O2SAT 96
--- NOTE | 2024-09-19 07:34 | P.GSPN_ITS ---
Subjective Subjective Date Seen: 09/19/24 Interval history: Patient is doing well this morning. He has a little bit of pain at the insertion site, this has been controlled. Denies any shortness of breath. No other concerns. He was able to get some sleep last night. Exam Narrative: Exam Narrative: General: Alert and oriented, no acute distress Respiratory: Maintained on room air. Right sided 8 [place] pigtail catheter in place. No evidence of leak in canister. About 800 mL straw-colored fluid within the Pleur-Evac. Const: Vital Signs, click to edit/add: Vital Signs - 24 hr 09/18/24 10:45 09/18/24 11:13 09/18/24 11:25 Temperature 97.4 F L Pulse Rate [Pulse Oximeter] 80 95 79 Respiratory Rate 16 16 16 Blood Pressure [Ri ght Arm] 137/77 135/77 129/82 Pulse Oximetry 100 94 94 Oxygen Delivery Me thod Room Air Room Air Room Air 09/18/24 11:30 09/18/24 11:35 09/18/24 11:36 Temperature Pulse Rate [Pulse Oximeter] 80 76 64 Respiratory Rate 16 16 16 Blood Pressure [Ri ght Arm] 121/74 117/73 118/81 Pulse Oximetry 94 94 95 Oxygen Delivery Me thod Room Air Room Air 09/18/24 12:00 09/18/24 12:05 09/18/24 12:10 Temperature Pulse Rate [Pulse Oximeter] 69 70 70 Respiratory Rate 16 16 Blood Pressure [Ri ght Arm] 92/58 L 129/75 121/73 Pulse Oximetry 94 94 94 Oxygen Delivery Me thod Room Air Room Air Room Air 09/18/24 12:59 09/18/24 12:59 09/18/24 15:00 Temperature 96.6 F L Pulse Rate [Pulse Oximeter] 67 77 Respiratory Rate 18 18 Blood Pressure [Ri ght Arm] 122/76 Pulse Oximetry 96 97 Oxygen Delivery Me thod Room Air Room Air 09/18/24 15:00 09/18/24 15:00 09/18/24 19:00 Temperature 98.4 F 98.2 F Pulse Rate [Pulse Oximeter] 77 71 Respiratory Rate 18 18 16 Blood Pressure [Ri ght Arm] 136/76 125/80 Pulse Oximetry 95 95 95 Oxygen Delivery Me thod Room Air Room Air Room Air 09/18/24 20:19 08/05/25 21:57 09/18/24 22:11 Temperature 97.3 F L Pulse Rate [Pulse Oximeter] 71 66 Respiratory Rate 16 18 18 Blood Pressure [Ri ght Arm] 110/72 Pulse Oximetry 97 97 Oxygen Delivery Me thod Room Air Room Air 09/19/24 03:00 Temperature 97.4 F L Pulse Rate [Pulse Oximeter] 62 Respiratory Rate 14 Blood Pressure [Ri ght Arm] 110/63 Pulse Oximetry 95 Oxygen Delivery Me thod Room Air Labs/Imaging Imaging Imaging: No evidence of a pneumothorax. Decrease in pleural effusion on the right. Right-sided pigtail catheter remains in place. Progress Note:A&P Assessment and plan (1) Pneumothorax, right: Status: Acute Assessment and Plan: Patient with a right-sided pigtail catheter, [address] Chest x-ray this morning shows no evidence of pneumothorax and removal of the pleural effusion. The chest tube was clamped this morning. Will take a repeat chest x- ray in 6 hours. If the chest x-ray is stable will plan to remove the chest tube at that time.
[2024-09-19] MEDS: IBUPROFEN 600 MG TABLET PO ×2 (07:57→15:03)
[2024-09-19] MEDS: HYDROXYCHLOROQUINE 200 MG TABLET PO (07:57)
[2024-09-19] MEDS: INSULIN ASPART 100 UNIT/ML SUBCUT ×4 (07:58→11:03)
[2024-09-19 10:29] VITALS: BMI 24.0
[2024-09-19 11:00] VITALS: BP 121/71; PULSE 74; RESP 16; TEMP 36.6; O2SAT 96
--- NOTE | 2024-09-19 13:00 | CRLHL7_ITS ---
For Patients: As a result of the Century Cures Act, medical imaging exams and procedure reports are released immediately into your electronic medical record. You may view this report before your referring provider. If you have questions, please contact your health care provider. INDICATION: Follow-up pneumothorax TECHNIQUE: Chest 2 views COMPARISON: 09/19/2024 FINDINGS: Decreased conspicuity of previously noted right apical pneumothorax. Right chest tube again noted. Mild residual amount of right pleural fluid. Right perihilar pulmonary lesion. IMPRESSION: Resolution of the right apical pneumothorax. Dictated by James Gilman MD @ 09/19/2024 2:20:17 PM (Electronically Signed)
--- NOTE | 2024-09-19 15:59 | PC.NURSE ---
Discharge-- Very pleasant and cooperative, alert and oriented patient discharged to home ambulatory with this afternoon. VSS and pt is afebrile. SPO2 maintained >90% on RA. Pain appears well managed with Motrin and [place] as needed. LS CTA, but diminished in right base. Chest tube clamped by Dr. Vanessa this morning and discontinued by Dr. Sandoval this afternoon and pt tolerated it well. Discharge education was provided including diagnosis info, symptoms to report, medications and follow up plan. Pt was discharged with SL in place for an outpatient MRI with contrast this afternoon.
== END 2024-09-19 15:30 | disposition home or self-care (01) | DRG 200 ==
LOC: MEDSURG 12:34
PROVIDERS: Admitting Provider Surgery; PCP Family Medicine; Visit Provider Surgery
DX: J95.811 Postprocedural pneumothorax (principal); J95.88 Other intraoperative complications of respiratory system, not elsewhere classified; J90 Pleural effusion, not elsewhere classified; R91.1 Solitary pulmonary nodule; E78.5 Hyperlipidemia, unspecified; E03.9 Hypothyroidism, unspecified; E11.9 Type 2 diabetes mellitus without complications; Z79.4 Long term (current) use of insulin; Z79.85 Long-term (current) use of injectable non-insulin antidiabetic drugs; Z79.84 Long term (current) use of oral hypoglycemic drugs; Z79.82 Long term (current) use of aspirin
CPT/HCPCS: 71045; 76604; 81445; 82962; 88112; 88305; 88341; 88342; A9270; J1815

== ENCOUNTER 2024-09-19 15:48 | Outpatient (CLI) | payer MEDICARE, SELFPAY ==
--- NOTE | 2024-09-19 16:00 | CRLHL7_ITS ---
For Patients: As a result of the Century Cures Act, medical imaging exams and procedure reports are released immediately into your electronic medical record. You may view this report before your referring provider. If you have questions, please contact your health care provider. INDICATION: Cystic lesion pancreas; further evaluation. COMPARISON: CT chest with intravenous contrast September 14, 2024. TECHNIQUE: MRCP; precontrast T1 and T2 weighted imaging; T2 haste imaging; diffusion-weighted imaging; in and out of phase imaging; postcontrast imaging including subtraction; 15 cc of [place] contrast was injected IV. FINDINGS: Large right-sided pleural effusion. Compression atelectasis right middle lobe and right lower lobe. A 7 mm lymph node identified in the right cardiophrenic angle fat pad. No focal hepatic or splenic pathology. Dilated pancreatic duct measuring 5 mm in diameter. A 3.5 x 2.7 x 1.4 cm septated cystic lesion mimicking a cluster of grapes within the uncinate process of the pancreas with high signal on the precontrast T2 haste imaging and low signal on the precontrast T1 weighted imaging without enhancement post contrast administration. A 1.2 cm unilocular cystic lesion in the uncinate process of the pancreas. No peripancreatic inflammatory changes. Gallbladder is unremarkable. No adrenal pathology. The kidneys are unremarkable. No retroperitoneal lymphadenopathy. No evidence of abdominal ascites. IMPRESSION: 1. A 3.5 x 2.7 x 1.4 cm septated cystic lesion in the uncinate process of the pancreas; rule out serous cystadenoma. 2. A 1.2 cm unilocular cystic lesion in the uncinate process of the pancreas; ruler side-branch IPMN. 3. Dilated pancreatic duct in its entirety measuring 5 mm in diameter without any obstructing lesion; rule out main duct IPMN. 4. A 7 mm enhancing lymph node right cardiophrenic angle fat pad. 5. Large right-sided pleural effusion with compression atelectasis right middle lobe and right lower lobe. 6. Suggest GI consultation and endoscopic ultrasound may be needed for further evaluation of the cystic lesions within the pancreatic uncinate process. Dictated by Angelina Contreras MD @ 09/21/2024 9:32:56 AM (Electronically Signed)
== END 2024-09-19 15:49 | disposition home or self-care (01) ==
LOC: MRI 15:48
PROVIDERS: PCP Family Medicine; Visit Provider Family Medicine
DX: K86.89 Other specified diseases of pancreas (principal); R59.0 Localized enlarged lymph nodes; J90 Pleural effusion, not elsewhere classified
CPT/HCPCS: 74183; A9575